=== PATIENT | male | born 1965 | race Hispanic/Latino ===

== ENCOUNTER 2018-04-01 16:35 | Emergency (ER) | payer BC ==
[2018-04-01] MEDS: Albuterol-Ipratrop 3 mg / 0.5 (3 ml) UD IH SCH ×3 (17:30→18:00)
[2018-04-01 18:20] VITALS: TEMP 97.6
[2018-04-01 18:21] LABS: BASO # 0.08 K/mm3 (0.0-2.0); BASO % 0.7 % (0.0-3.0); EOS # 0.7 (0.0-0.7); EOS % 5.6 % (1.5-5.0); GRAN # 5.56 (1.4-6.5); GRAN % 45.5 % (50.0-68.0); HEMOGLOBIN 16.2 g/dL (14.0-18.0); LYMPH # 5.1 (1.2-3.4); LYMPH % 42.1 % (22.0-35.0); MEAN CELL VOLUME 94.2 fl (80.0-105.0); MEAN CORPUSCULAR HEMOGLOBIN 32.1 pg (25.0-35.0); MEAN CORPUSCULAR HGB CONC 34.1 g/dl (31.0-37.0); MONO # 0.7 (0.1-0.6); MONO % 6.1 % (1.0-6.0); RBC 5.04 10^6/uL (3.5-6.1); WHITE BLOOD COUNT 12.2 10^3/uL (4.5-11.0)
--- NOTE | 2018-04-01 18:26 | RAD ---
HISTORY: sob/ hx of copd COMPARISON: None available. TECHNIQUE: Chest, one view. FINDINGS: LUNGS: No focal consolidation. Flattening of the hemidiaphragm as seen with hyperinflation in the setting of COPD. Please note that chest x-ray has limited sensitivity for the detection of pulmonary masses. PLEURA: No significant pleural effusion identified. No definite pneumothorax . CARDIOVASCULAR: The cardiomediastinal silhouette appears within normal limits of size. No significant atherosclerotic calcification present. OSSEOUS STRUCTURES: Degenerative changes. VISUALIZED UPPER ABDOMEN: Unremarkable. OTHER FINDINGS: None. IMPRESSION: Flattening of the hemidiaphragm as seen with hyperinflation in the setting of COPD. Correlate clinically.
[2018-04-01 18:33] LABS: ALB/GLOB RATIO 1.5 (1.1-1.8); ALBUMIN 4.3 g/dL (3.0-4.8); ALT/SGPT 34 U/L (7-56); AST/SGOT 24 U/L (17-59); BLOOD UREA NITROGEN 18 mg/dL (7-21); CALCIUM 9.2 mg/dL (8.4-10.5); GFR NON-AFRICAN AMERICAN > 60
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
[2018-04-01 19:42] LABS: B-TYPE NATRIURETIC PEPTIDE 38.8 pg/mL (0-450); TROPONIN I < 0.01 ng/mL
[2018-04-01 20:24] VITALS: PULSE 69; RESP 18
[2018-04-01 21:41] VITALS: BP 112/72; O2SAT 98
--- NOTE | 2018-04-02 10:57 | CARD ---
APPROVED REPORT Date of service: 04/01/2018 EKG Measurement Heart [id number] <Conclusion> Normal sinus rhythm NSSTW changes LVH by voltage RVCD
== END 2018-04-01 21:39 | disposition left against medical advice (07) ==
LOC: ED 16:35
DX: J44.1 Chronic obstructive pulmonary disease with (acute) exacerbation (principal); Z87.891 Personal history of nicotine dependence
CPT/HCPCS: 71045; 80053; 82550; 83615; 83880; 84484; 85025; 93005; 94640; 96374; 99285; J2930